=== PATIENT | female | born 1990 | race Caucasian/White ===

== ENCOUNTER → 2018-03-14 | Outpatient (CLI) | payer OTHER ==
[~2018-03-14] MED LIST: ANAPROX DS550 MG PO; NUVARING1 ICR VG; PRENATAL1 TA1 PO; ZANTAC150 MG PO
== END | disposition home or self-care (01) ==
LOC: CT 14:59
DX: R10.11 Right upper quadrant pain (principal); Z90.49 Acquired absence of other specified parts of digestive tract

== ENCOUNTER → 2020-07-16 | Outpatient (CLI) | payer OTHER | END | disposition home or self-care (01) | LOC: COVID19 14:06 | PROVIDERS: ATTEND Student in an Organized Health Care Education/Training Program | DX: U07.1 COVID-19 (principal) ==

== ENCOUNTER → 2020-07-22 | Outpatient (CLI) | payer OTHER | END | disposition home or self-care (01) | LOC: COVID19 14:31 | PROVIDERS: ATTEND Internal Medicine | DX: U07.1 COVID-19 (principal) ==

== ENCOUNTER → 2021-08-11 | Outpatient (CLI) | payer OTHER | END | disposition home or self-care (01) | LOC: US 08:47 | PROVIDERS: ATTEND Nurse Practitioner Family | DX: E04.1 Nontoxic single thyroid nodule (principal) ==

== ENCOUNTER → 2021-12-01 | Outpatient (CLI) | payer OTHER | END | disposition home or self-care (01) | LOC: MAMMO 14:00 | PROVIDERS: ATTEND Nurse Practitioner Family | DX: N63.20 Unspecified lump in the left breast, unspecified quadrant (principal) ==

== ENCOUNTER 2024-03-26 16:15 | Emergency (ER) | payer OTHER ==
[~2024-03-26] VITALS: Ht 162.5 cm; Wt 120.2 kg
[2024-03-26] MEDS ORDERED: FLUOXETINE HYDR20 M1 PO (16:26)
[2024-03-26] MEDS ORDERED: VYVANSE70 MG PO (16:26)
[2024-03-26] MEDS ORDERED: Motrin,Rufen800 MG PO (18:02)
[2024-03-26] MEDS ORDERED: IBUPROFEN 800 MG TAB PO ONE (18:05)
== END 2024-03-26 18:56 | disposition home or self-care (01) ==
LOC: ED 16:15
DX: S92.351A Displaced fracture of fifth metatarsal bone, right foot, initial encounter for closed fracture (principal); S93.401A Sprain of unspecified ligament of right ankle, initial encounter; Z90.49 Acquired absence of other specified parts of digestive tract; W19.XXXA Unspecified fall, initial encounter; Y93.89 Activity, other specified; Y92.89 Other specified places as the place of occurrence of the external cause; Y99.8 Other external cause status

== ENCOUNTER 2024-07-09 08:33 | Emergency (ER) | payer OTHER ==
[~2024-07-09] VITALS: Ht 162.5 cm; Wt 122.5 kg
[~2024-07-09 08:33] MED LIST changes: +FLUOXETINE HYDR20 M1 PO; +Motrin,Rufen800 MG PO; +VYVANSE70 MG PO
[2024-07-09 09:30] LABS: BILIRUBIN Negative (Negative); BLOOD 3+ (Negative); CLARITY Clear (Clear); COLOR Yellow (Yellow); GLUCOSE Negative (Negative); KETONE Negative (Negative); LEUKO ESTERASE 1+ (Negative); NITRITE Negative (Negative); PH 5.5 (4.5-8.0); SPECIFIC GRAVITY 1.025 (1.001-1.030)
[2024-07-09 09:43] LABS: BASO # 0.1 10*3/uL (0.0-0.1); BASO % 0.6 % (0.0-1.0); EOS # 0.1 10*3/uL (0.0-0.4); EOS % 1.7 % (1.0-4.0); HEMATOCRIT 41.5 % (37.0-47.0); MEAN CELL VOLUME 88.3 fl (81.0-99.0); MEAN CORPUSCULAR HGB 28.5 pg (27.0-31.0); MEAN CORPUSCULAR HGB CONC 32.3 g/dl (33.0-37.0); MEAN PLATELET VOLUME 9.6 fl (9.6-12.3); MONO # 0.5 10*3/uL (0.1-1.0); MONO % 6.2 % (3.0-9.0); NEUT # 4.9 10*3/uL (2.3-7.9); NEUT % 58.3 % (47.0-73.0); PLATELET COUNT AUTOMATED 344 10*3/uL (130-400); RED CELL DISTRI WIDTH 12.3 % (0-14.5); WHITE BLOOD COUNT 8.4 10*3/uL (4.8-10.8)
[2024-07-09 09:52] LABS: BACTERIA TRACE; CALCIUM OXALATE CRYSTALS 1+; MUCOUS TRACE; RBC 16-20 rbc/hpf (0-2); WBC 16-20 wbc/hpf (0-5)
[2024-07-09 10:04] LABS: BUN 12 mg/dl (9-23); CHLORIDE 105 mmol/L (98-107); POTASSIUM 3.2 mmol/L (3.4-5.1)
[2024-07-09] MEDS ORDERED: Ketorolac Tromethamine 30 MG/ML VIAL IM ONE (10:10)
[2024-07-09] MEDS ORDERED: diphenhydrAMINE hydrochloride 50 MG/ML VIAL IM ONE (10:10)
[2024-07-09] MEDS ORDERED: POTASSIUM CHLORIDE 20 MEQ TAB PO ONE (10:10)
[2024-07-09] MEDS ORDERED: Ondansetron Hydrochloride 4 MG TAB SL ONE (10:10)
== END 2024-07-09 12:01 | disposition home or self-care (01) ==
LOC: ED 08:33
PROVIDERS: Internal Medicine
DX: I10 Essential (primary) hypertension (principal); F41.9 Anxiety disorder, unspecified; R10.2 Pelvic and perineal pain; R51.9 Headache, unspecified; Z90.49 Acquired absence of other specified parts of digestive tract

== ENCOUNTER → 2024-07-24 | Outpatient (CLI) | payer OTHER | END | disposition home or self-care (01) | LOC: RAD 14:54 | PROVIDERS: ATTEND Family Medicine | DX: R05.9 Cough, unspecified (principal) ==

== ENCOUNTER 2024-09-24 18:03 | Emergency (ER) | payer OTHER ==
[~2024-09-24] VITALS: Ht 162.5 cm; Wt 115.7 kg
[2024-09-24] MEDS ORDERED: Acetaminophen/Hydrocodone 5 MG/325 MG TABLET PO ONE (18:25)
== END 2024-09-24 20:00 | disposition home or self-care (01) ==
LOC: ED 18:03
DX: S80.02XA Contusion of left knee, initial encounter (principal); I10 Essential (primary) hypertension; Z90.49 Acquired absence of other specified parts of digestive tract; W20.8XXA Other cause of strike by thrown, projected or falling object, initial encounter; Y93.89 Activity, other specified; Y92.89 Other specified places as the place of occurrence of the external cause; Y99.8 Other external cause status

== ENCOUNTER 2024-10-05 08:39 | Emergency (ER) | payer OTHER ==
[~2024-10-05] VITALS: Ht 162.5 cm; Wt 115.7 kg
[2024-10-05] MEDS ORDERED: Acetaminophen/Oxycodone 5 MG/325 MG TABLET PO ONE (09:55)
== END 2024-10-05 11:04 | disposition home or self-care (01) ==
LOC: ED 08:39
DX: S80.12XA Contusion of left lower leg, initial encounter (principal); R22.42 Localized swelling, mass and lump, left lower limb; Z79.899 Other long term (current) drug therapy; Z90.49 Acquired absence of other specified parts of digestive tract; W22.8XXA Striking against or struck by other objects, initial encounter; Y93.89 Activity, other specified; Y92.89 Other specified places as the place of occurrence of the external cause; Y99.8 Other external cause status